=== PATIENT | female | born 1965 | race Caucasian/White ===

== ENCOUNTER 2016-09-05 10:51 | Emergency (ER) | payer MEDICAID ==
[2016-09-05 10:51] VITALS: BMI 51.5
[2016-09-05 11:24] VITALS: O2SAT 98
[2016-09-05] MEDS ORDERED: Albuterol-Ipratrop 3 mg / 0.5 (3 ml) UD ONE (11:26)
[2016-09-05] MEDS ORDERED: Albuterol-Ipratrop 3 mg / 0.5 (3 ml) UD IH STA (11:27)
--- NOTE | 2016-09-05 11:37 | ED PDOC ---
HPI: CCC, URI, Sore Throat Time Seen by Provider: 09/05/16 11:14 Chief Complaint (Nursing): Cough, Cold, Congestion Chief Complaint (Provider): cough History Per: Patient History/Exam Limitations: no limitations Have you had recent travel within the past 21 days to any of the following countries: [place], [place], [place] or [place]?: No Onset/Duration Of Symptoms: Days Additional Complaint(s): Pura Wesley is a 50 year old female, with a previous medical history of bronchitis, who presents to the ED with complaints of a cough productive of clear sputum associated with chest tightness which has been worsening for the past few days. Patient reports running out of nebulizer treatments the last few days. She denies any fevers or shortness of breath. PMD: none provided Past Medical History Reviewed: Historical Data, Nursing Documentation, Vital Signs Vital Signs: Last Vital Signs Temp Pulse Resp BP Pulse Ox 98 09/05/16 11:39 - Medical History PMH: Bronchitis - Surgical History Surgical History: No Surg Hx - Family History Family History: States: Unknown Family Hx - Home Medications Home Medications: Ambulatory Orders Medication Instructions Recorded Albuterol 0.083% [Albuterol 3 ml IH Q8 #1 neb 09/05/16 Sulfate 3 Ml] Amoxicillin [Amoxil 500 mg Cap] 500 mg PO TID #30 cap 09/05/16 - Allergies Allergies/Adverse Reactions: Allergies Allergy/AdvReac Type Severity Reaction Status Date / Time No Known Allergies Allergy Verified 09/05/16 11:22 Review of Systems ROS Statement: Except As Marked, All Systems Reviewed And Found Negative Constitutional: Negative for: Fever Cardiovascular: Positive for: Chest Pain (tightness) Respiratory: Positive for: Cough, Sputum (clear). Negative for: Shortness of Breath Physical Exam - Reviewed Nursing Documentation Reviewed: Yes Vital Signs Reviewed: Yes - Physical Exam Appears: Positive for: Well, Non-toxic, No Acute Distress Head Exam: Positive for: ATRAUMATIC, NORMAL INSPECTION, NORMOCEPHALIC Skin: Positive for: Normal Color, Warm, Dry ENT: Positive for: Normal ENT Inspection. Negative for: Pharyngeal Erythema, Tonsillar Exudate, Tonsillar Swelling Cardiovascular/Chest: Positive for: Regular Rate, Rhythm Respiratory: Positive for: Rhonchi (scattered bilaterally ). Negative for: Decreased Breath Sounds, Accessory Muscle Use, Wheezing, Respiratory Distress Gastrointestinal/Abdominal: Positive for: Normal Exam, Bowel Sounds, Soft. Negative for: Tenderness Extremity: Positive for: Normal ROM Neurologic/Psych: Positive for: Alert, Oriented - ECG O2 Sat by Pulse Oximetry: 98 (RA) Pulse Ox Interpretation: Normal Medical Decision Making Medical Decision Making: Initial Impression: Cough Initial Plan: * duoneb * CXR * peak flow pre/post treatment * reevaluation Scribe Attestation: Documented by Pippa Thao, acting as a scribe for Paul Elizalde MD. Provider Scribe Attestation: All medical record entries made by the Scribe were at my direction and personally dictated by me. I have reviewed the chart and agree that the record accurately reflects my personal performance of the history, physical exam, medical decision making, and the department course for this patient. I have also personally directed, reviewed, and agree with the discharge instructions and disposition. Disposition - Clinical Impression Clinical Impression: Bronchitis - Patient ED Disposition Is Patient to be Admitted: No Counseled Patient/Family Regarding: Studies Performed, Diagnosis, Need For Followup, Rx Given - Disposition Referrals: [facility] [Outside] Disposition: Routine/Home Disposition Time: 12:21 Condition: FAIR Prescriptions: Albuterol 0.083% [Albuterol Sulfate 3 Ml] 3 ml IH Q8 #1 neb Amoxicillin [Amoxil 500 mg Cap] 500 mg PO TID #30 cap Instructions: Acute Bronchitis (ED)
--- NOTE | 2016-09-05 12:26 | RAD ---
HISTORY: cough COMPARISON: No prior. TECHNIQUE: Chest PA and lateral FINDINGS: LUNGS: Small infiltrates seen at the right lower lung. PLEURA: No significant pleural effusion identified. No pneumothorax apparent. CARDIOVASCULAR: Normal. OSSEOUS STRUCTURES: No significant abnormalities. VISUALIZED UPPER ABDOMEN: Normal. OTHER FINDINGS: None. IMPRESSION: Suspicious for small infiltrate at the right lower lung may represent pneumonia. Otherwise no evidence for acute pulmonary disease.
[2016-09-05 12:46] VITALS: BP 120/78; PULSE 78; RESP 20; TEMP 97.6
== END 2016-09-05 12:46 | disposition home or self-care (01) ==
LOC: H.ER 10:51
DX: J40 Bronchitis, not specified as acute or chronic (principal)

== ENCOUNTER 2016-12-07 18:42 | Emergency (ER) | payer MEDICAID ==
[2016-12-07 18:43] VITALS: BMI 51.5
[2016-12-07 18:56] VITALS: BP 136/79; PULSE 89; RESP 16; TEMP 99; O2SAT 96
--- NOTE | 2016-12-07 19:22 | ED PDOC ---
Lower Extremity Pain/Injury Time Seen by Provider: 12/07/16 18:57 Chief Complaint (Nursing): Lower Extremity Problem/Injury Chief Complaint (Provider): Right knee pain History Per: Patient History/Exam Limitations: no limitations Onset/Duration Of Symptoms: Days (x 3) Current Symptoms Are (Timing): Still Present Additional Complaint(s): Pura is a 51 y/o female who presents to the ED complaining of atraumatic right knee pain for the past 3 days. Reports she usually has mild bilateral knee pain, but this is the worst its ever been. Approximately 15-20 years ago she sustained a fracture to the right knee which required surgery. States that when going from seated to standing position, the pain worsens. Denies any associated trauma, fever, numbness, or tingling. PMD: Alicia Acosta Past Medical History Reviewed: Historical Data, Nursing Documentation, Vital Signs Vital Signs: Last Vital Signs Temp 99.0 F 12/07/16 18:53 Pulse 89 12/07/16 18:53 Resp 16 12/07/16 18:53 BP 136/79 12/07/16 18:53 Pulse Ox 96 12/07/16 18:53 - Medical History PMH: Asthma, Bronchitis, Malignancy (Breast CA) - Surgical History Other surgeries: Right knee surgery for fracture 15-20 yrs ago, Surgery to remove lymph node at left axilla/breast 2017 - Family History Family History: States: Unknown Family Hx - Social History Current smoker - smoking cessation education provided: Yes (Light) Alcohol: Social Drugs: Denies - Home Medications Home Medications: Ambulatory Orders Medication Instructions Recorded Albuterol 0.083% [Albuterol 3 ml IH Q8 #1 neb 09/05/16 Sulfate 3 Ml] Amoxicillin [Amoxil 500 mg Cap] 500 mg PO TID #30 cap 09/05/16 Meloxicam [Mobic] 15 mg PO DAILY PRN #15 tab 12/07/16 - Allergies Allergies/Adverse Reactions: Allergies Allergy/AdvReac Type Severity Reaction Status Date / Time No Known Allergies Allergy Verified 12/07/16 18:52 Review of Systems ROS Statement: Except As Marked, All Systems Reviewed And Found Negative Constitutional: Negative for: Fever Musculoskeletal: Positive for: Leg Pain (Right knee pain) Neurological: Negative for: Numbness (and tingling), Other (Trauma) Physical Exam - Reviewed Nursing Documentation Reviewed: Yes Vital Signs Reviewed: Yes - Physical Exam Appears: Positive for: Non-toxic, No Acute Distress Head Exam: Positive for: ATRAUMATIC, NORMAL INSPECTION, NORMOCEPHALIC Skin: Positive for: Normal Color, Warm, Dry Eye Exam: Positive for: EOMI, Normal appearance, PERRL Neck: Positive for: Normal, Painless ROM, Supple Pulses-Dorsalis Pedis (L): 2+ Pulses-Dorsalis Pedis (R): 2+ Extremity: Negative for: Tenderness (Right knee has mild crepitus, no swelling, tenderness, or deformity. No warmth or erythema. ), Calf Tenderness Neurologic/Psych: Positive for: Alert, Oriented - ECG O2 Sat by Pulse Oximetry: 96 (RA) Pulse Ox Interpretation: Normal - Radiology X-Ray: Interpreted by Me (R knee) X-Ray Interpretation: Other (DJD; decreased joint space; nothing acute) Medical Decision Making Medical Decision Making: Time: 19:06 Initial Plan: --Patient given Toradol, 15 mg IM --Pending X-Ray Right Knee Scribe Attestation: Documented by Leslye Pascual, acting as a scribe for Jarvis Mcnair PA-C Provider Scribe Attestation: All medical record entries made by the Scribe were at my direction and personally dictated by me. I have reviewed the chart and agree that the record accurately reflects my personal performance of the history, physical exam, medical decision making, and the department course for this patient. I have also personally directed, reviewed, and agree with the discharge instructions and disposition. Disposition - Clinical Impression Clinical Impression: Knee pain - Disposition Referrals: [facility] [Outside] Disposition: Routine/Home Disposition Time: 20:06 Condition: STABLE Prescriptions: Meloxicam [Mobic] 15 mg PO DAILY PRN #15 tab PRN Reason: pain Instructions: Knee Pain (ED) Forms: [facility] ([place]rainian)
--- NOTE | 2016-12-08 11:07 | RAD ---
PROCEDURE: Right Knee Radiographs. HISTORY: pain COMPARISON: 08/08/2014 FINDINGS: BONES: Normal. No fracture. JOINTS: Medial and patellofemoral osteoarthritis, most profoundly medial joint compartment. No significant change when compared to examination of 08/08/2014. No articular erosions. JOINT EFFUSION: None. OTHER FINDINGS: None. IMPRESSION: Medial and patellofemoral osteoarthritis. No acute fracture.
== END 2016-12-07 20:45 | disposition home or self-care (01) ==
LOC: H.ER 18:42
DX: M25.561 Pain in right knee (principal); Z85.3 Personal history of malignant neoplasm of breast
CPT/HCPCS: 73562; 96372; 99283; J1885